=== PATIENT | male | born 1955 | race Caucasian/White ===

== ENCOUNTER → 2017-12-09 | Outpatient (CLI) | payer BC ==
[~2017-12-09] MED LIST: CEPHALEXIN500 M1 PO; TYLENOL PO
--- NOTE | 2017-12-09 12:35 | Diagnostic Imaging Report ---
PROCEDURE: CT CHEST WITHOUT CONTRAST CT scan of the chest WITHOUT intravenous contrast, using standard protocol. TECHNIQUE: The chest was scanned utilizing a multidetector helical scanner from the apex to the level of the adrenal glands. No IV contrast was administered per physician request. Coronal and sagittal multiplanar reformations were obtained. Total DLP: 547.76 mGy*cm COMPARISON: None. INDICATIONS: CHRONIC OBSTRUCTIVE PULMONARY DISEASE FINDINGS: Lines/tubes: None. Lungs and Airways: Bilateral moderate centrilobular emphysematous changes most markedly involving the upper lobes. There is a 2 mm subpleural nodule in the left upper lobe laterally on image 60 series 3. 1 mm pleural based nodule in the left upper lobe on image 75 series 3. 2 mm nodule in the posterolateral left upper lobe on image 87 series 3 likely an intrapulmonary lymph node. Mild bibasilar dependent atelectasis. 4 mm and 3 mm nodules in the right middle lobe abutting the interlobar fissure on images 90 and 93 series 3 respectively suggestive of intrapulmonary lymph nodes. No focal consolidations or masses. Pleura: The pleural spaces are clear. Heart and mediastinum: The thyroid gland is normal. No significant mediastinal, hilar or axillary lymphadenopathy is seen. The heart and pericardium are within normal limits. Soft tissues: Normal. Abdomen: Limited views of the upper abdomen show a 1.4 cm low attenuation lesion in the posterior segment of the right hepatic lobe on image 39 series 2 which cannot be further characterized due to lack of contrast (34 HU). 6 mm low attenuation lesion in the lateral segment of the left hepatic lobe on image 131 series 2 demonstrates a near water attenuation, consistent with a cyst. Mild calcifications of the abdominal aorta without aneurysmal dilatation. 8mm lipid rich adenoma in the left adrenal gland on image 132. 1.4 cm low-attenuation lesion in the posterior interpolar region of the left kidney on image 148 consistent with a cyst. 1.5 cm lipid rich adenoma in the apex of the right adrenal gland on image 29. Scattered colonic diverticula.. Bones: Remote healed fracture of the left eighth, ninth and 12th posterior ribs. IMPRESSION: 1. Bilateral moderate centrilobular emphysematous changes most markedly involving the upper lobes. 2. 1.4 cm low attenuation lesion in the posterior segment of the right hepatic lobe is indeterminate which cannot be further characterized due to lack of contrast. Although most likely benign, suggest further evaluation with CT or MRI abdomen without and with contrast liver mass protocol. 3. Bilateral small adrenal adenomata. Siria Ho M.D. Dictated by: Siria Ho M.D. on 12/09/2017 at 12:37 Electronically approved by: Siria Ho M.D. on 12/09/2017 at 12:37
== END ==
LOC: CT 10:56
PROVIDERS: ATTEND Internal Medicine
DX: J44.9 Chronic obstructive pulmonary disease, unspecified (principal)
CPT/HCPCS: 71250